=== PATIENT | female | born 1965 | race Caucasian/White ===

== ENCOUNTER → 2017-12-19 | Outpatient (CLI) | payer OTHER | END | disposition home or self-care (01) | LOC: NUCLEAR 08:24 | DX: I20.1 Angina pectoris with documented spasm (principal); I67.89 Other cerebrovascular disease; Z86.73 Personal history of transient ischemic attack (TIA), and cerebral infarction without residual deficits ==

== ENCOUNTER → 2018-11-27 | Outpatient (CLI) | payer OTHER | END | disposition home or self-care (01) | LOC: NUCLEAR 10:00 | DX: I20.1 Angina pectoris with documented spasm (principal) ==

== ENCOUNTER 2022-08-20 17:22 | Emergency (ER) | payer OTHER ==
[~2022-08-20] VITALS: Ht 160 cm; Wt 70.3 kg
[2022-08-20] MEDS ORDERED: PLAVIX75 MG PO (20:26)
[2022-08-20] MEDS ORDERED: LANTUS SOL100 UNIT/1 SUBCUTANEO (20:26)
[2022-08-20] MEDS ORDERED: TENORMIN50 M1 PO (20:26)
[2022-08-20] MEDS ORDERED: COZAAR50 MG PO (20:26)
[2022-08-20] MEDS ORDERED: JARDIANCE25 MG PO (20:27)
== END 2022-08-20 23:02 | disposition home or self-care (01) ==
LOC: ER 17:22
DX: M25.511 Pain in right shoulder (principal); E11.9 Type 2 diabetes mellitus without complications; Z79.4 Long term (current) use of insulin; I10 Essential (primary) hypertension